=== PATIENT | female | born 1965 | race Hispanic/Latino ===

== ENCOUNTER 2017-01-02 09:05 | Day surgery (SDC) | payer BC, OTHER ==
[2017-01-02 09:21] VITALS: BMI 26.9
[2017-01-02] MEDS ORDERED: Lidocaine 1% Inj (20ml) ONE (10:13)
[2017-01-02] MEDS ORDERED: Vasopressin 20 Units/ml Inj ONE (10:13)
[2017-01-02] MEDS ORDERED: HYDROmorphone 0.5 mg/0.5 ml ISec IVP PRN (10:26)
[2017-01-02] MEDS ORDERED: Lactated Ringer's 1,000 ML IV ONE (10:32)
[2017-01-02] MEDS ORDERED: Midazolam 2 MG/2 ML VIAL ONE (10:37)
[2017-01-02] MEDS ORDERED: Propofol 10 mg/ml Inj (20 ML) ONE (10:38)
[2017-01-02] MEDS ORDERED: ceFAZolin IV 1 gm in Dextrose 1 GM/50 ML BAG IVPB ONE (10:46)
--- NOTE | 2017-01-02 11:23 | PCM.SURG1 ---
Surgeon's Initial Post Op Note - Surgeon's Notes Surgeon: dr aleman Shredder/Granulator Operator: NONE Type of Anesthesia: General LMA Anesthesia Administered By: DR BIRMINGHAM Pre-Operative Diagnosis: PRIYANKA 111, END THICKENING Operative Findings: SEE THE OP REOPRT Post-Operative Diagnosis: SAME Operation Performed: COLD KNIFE CONE AND D&C Specimen/Specimens Removed: CERVICAL BIOPSY. ECC. EMC Estimated Blood Loss: EBL {In ML}: 150 Blood Products Given: N/A Drains Used: No Drains Post-Op Condition: Good Date of Surgery/Procedure: 01/02/17 Time of Surgery/Procedure: 11:30
[2017-01-02 13:46] VITALS: TEMP 97.8
[2017-01-02 15:15] VITALS: BP 100/67; PULSE 76; RESP 18; O2SAT 98
--- NOTE | 2017-01-06 01:42 | OP ---
PROCEDURE DATE: 01/02/2017 SURGEON: Rolando Campbell MD [employer] SURGEON: None ANESTHESIA: General with LMA. ANESTHESIOLOGIST: Dr. Waters. PREOPERATIVE DIAGNOSES: The patient is 52-year-old with PRIYANKA III on endometrial ECC, abnormal cervical cytology. PRIYANKA III and endometrial thickening. POSTOPERATIVE DIAGNOSES: The patient is 52-year-old PRIYANKA III on endometrial ECC, abnormal cervical cytology. PRIYANKA III and endometrial thickening. OPERATION PERFORMED: Cold knife cone biopsy and D and C. SPECIMEN: Cervical biopsy, ECC and EMC. COMPLICATIONS: None. ESTIMATED BLOOD LOSS: 150 mL PROCEDURE: After informed consent obtained, the patient was brought to the operating room, placed on the table where general anesthesia was given. When the anesthesia was found to be sufficient, the patient was prepped and draped in the usual sterile fashion. After that, Betadine was used to clean the cervix. After that, the anterior lip of the cervix was grasped with tenaculum after that visualized with speculum. A 10 mL of Pitocin and Lidocaine was given in the cervix. After that, as PRIYANKA III was seen on the ECC the decision was to do cone biopsy. After that, a stitch was placed at 3 o'clock and 9 o'clock. After that, the anterior lip of the cervix was held up with Allis and blade #11 was used to do the cold knife cone it was then used from one side and the cone was taken. The cervical cone biopsy was done and no cautery was used. The cone was taken out and it was sent to the pathology. After that the edges were bleeding, so it was cauterized with the Bovie and then a lot of Monsel was applied it was bleeding so extra Monsel was applied, lot of pressure was applied, then we waited for a little bit, it was observed. No bleeding. The patient tolerated the procedure well. Lap, sponge and instruments were correct x2. The patient was sent to recovery room. The patient was sent home on antibiotics and pain medication. To follow up with Dr. Campbell in 2 weeks. Rolando Campbell MD [facility] # [id number]
== END 2017-01-02 15:00 | disposition home or self-care (01) ==
LOC: C.SDS 09:05
PROVIDERS: ATTEND Obstetrics & Gynecology
DX: R87.613 High grade squamous intraepithelial lesion on cytologic smear of cervix (HGSIL) (principal)
CPT/HCPCS: 57520; 88305; 88307; J0690; J1170; J1885; J2250; J2405; J2704; J2765; J3010; J7120

== ENCOUNTER 2017-01-05 09:20 | Observation (INO) | payer BC ==
[2017-01-05 09:21] VITALS: BMI 26.9
[2017-01-05 09:54] LABS: BASO # 0.1 K/uL (0.0-0.2); BASO % 1.4 % (0.0-2.0); EOS # 0.3 K/uL (0.0-0.7); EOS % 3.5 % (0.0-4.0); HEMATOCRIT 38.6 % (34.0-47.0); LYMPH # 2.4 K/uL (1.0-4.3); LYMPH % 31.5 % (20.0-40.0); MEAN CELL VOLUME 88.2 fL (81.0-99.0); MEAN CORPUSCULAR HEMOGLOBIN 29.2 pg (27.0-31.0); MEAN CORPUSCULAR HGB CONC 33.1 g/dL (33.0-37.0); MEAN PLATELET VOLUME 8.4 fL (7.2-11.7); MONO # 0.2 K/uL (0.0-0.8); MONO % 3.2 % (0.0-10.0); NRBC % 0.1 % (0.0-2.0); WHITE BLOOD COUNT 7.6 K/uL (4.8-10.8)
--- NOTE | 2017-01-05 09:55 | C.PDOC ---
History Of Present Illness 52 y/o F c PMHx hypercholesterolemia, s/p cone biopsy and D&C [address] Campbell p/w vaginal bleeding and syncope 2 hours ago. Patient states that this morning, she had 2 episodes of a large amount of blood from the vagina. After the 2nd episode, she got up from bed to go to the bathroom and lost consciousness. She awoke on the floor and called for an ambulance to come to the ER. She denies any pain or trauma from her fall. She denies constant vaginal bleeding. Denies chest pain, dyspnea, palpitations. Time Seen by Provider: 01/05/17 09:28 Chief Complaint (Nursing): Female Genitourinary Past Medical History Vital Signs: Last Vital Signs Temp 98.1 F 01/05/17 09:30 Pulse 68 01/05/17 09:30 Resp 20 01/05/17 09:30 BP 86/53 L 01/05/17 09:30 Pulse Ox 98 01/05/17 10:07 - Medical History PMH: Depression, Gall Bladder Disease, Hypercholesterolemia Denies: Chronic Kidney Disease Surgical History: Cholecystectomy Family History: States: No Known Family Hx - Social History Hx Alcohol Use: No Hx Substance Use: No Review Of Systems Except As Marked, All Systems Reviewed And Found Negative. Constitutional: Negative for: Fever Cardiovascular: Negative for: Chest Pain Physical Exam - Physical Exam Additional Physical Exam Comments: Constitutional: No acute distress. Head: Normocephalic. Atraumatic. Eyes: PERRL. ENT: Moist mucous membranes. Neck: Supple. Cardiovascular: Regular rate. Radial pulses 2+ bilaterally. Chest: No tenderness. Respiratory: Clear to auscultation bilaterally. GI: Soft. Nontender. Nondistended. Pelvic: No cydney hemorrhage from vagina. Back: No CVA tenderness. Musculoskeletal: No tenderness or swelling of extremities. Skin: No rash. Diaphoretic. Neurologic: Alert, no focal deficit. ED Course And Treatment - Laboratory Results Result Diagrams: 01/05/17 09:49 01/05/17 09:49 O2 Sat by Pulse Oximetry: 98 Medical Decision Making Medical Decision Making: Discussed case with Dr. Campbell who will come see patient in ED and perform pelvic exam, requests Molina at bedside. EKG: Normal sinus rhythm at [address]/T wave changes. Dr. Campbell accepts patient to her service for observation. Disposition Discussed With : Rolando Campbell Doctor Will See Patient In The: ED - Disposition Disposition: HOSPITALIZED Disposition Time: 10:32 Condition: FAIR Forms: [facility] (Yoruba) - Clinical Impression Clinical Impression: Syncope, Vaginal bleeding - Scribe Statement The provider has reviewed the documentation as recorded by the Scribe Carrlol Dupree All medical record entries made by the Marloibe were at my direction and personally dictated by me. I have reviewed the chart and agree that the record accurately reflects my personal performance of the history, physical exam, medical decision making, and the department course for this patient. I have also personally directed, reviewed, and agree with the discharge instructions and disposition.
[2017-01-05 10:02] LABS: CHLORIDE 103 mmol/L (98-107); POTASSIUM 4.2 mmol/L (3.6-5.2); SODIUM 141 mmol/L (132-148)
[2017-01-05 10:04] LABS: BILIRUBIN,TOTAL 0.5 mg/dL (0.2-1.3); GFR AFRICAN-AMERICAN > 60
[2017-01-05 10:05] LABS: ALB/GLOB RATIO 1.2 (1.0-2.1); ALKALINE PHOSPHATASE 42 U/L (38-126); ALT/SGPT 56 U/L (9-52); AST/SGOT 25 U/L (14-36); BLOOD UREA NITROGEN 17 mg/dL (7-17); CALCIUM 8.8 mg/dl (8.6-10.4); CARBON DIOXIDE 25 mmol/L (22-30); GLUCOSE,RANDOM 120 mg/dL (65-105); TOTAL PROTEIN 6.6 g/dL (6.3-8.3)
[2017-01-05] MEDS ORDERED: FERRIC SUBSULFATE TOP STA (10:05)
[2017-01-05] MEDS ORDERED: Sodium Chloride 0.9% 1,000 ML IV STA (10:33)
[2017-01-05] MEDS ORDERED: Lactated Ringer's 1,000 ML IV SCH (11:30)
--- NOTE | 2017-01-05 12:51 | CP.PCM.HP ---
History of Present Illness - History of Present Illness History of Present Illness: Ms. Coombs is a 52 y.o. female with PMH HLD and depression who presents to the ER BIBA with heavy vaginal bleeding, and an episode of loss of consciousness this morning. She is s/p cone biopsy and D&C on 01/02/17 due to abnormal PAP smear 4 weeks earlier, and abnormal colposcopy 2 weeks ago. Patient states that her post-op condition has been well with only some spotting on Sunday- (1 pad/day), and mild pain controlled by Motrin and was also on abx. Boyfriend seen and room and was asked to step outside for the H&P. Patient states that she had prior syncopal episode in teen years. Pt states that this morning, she awoke at 0600 and discovered vaginal bleeding on her bedsheets and reports clots when she used the bathroom but felt fine afterward and denied active bleeding. At 0800, pt experienced another episode of heavy bleeding and as she was making her way to the bathroom, she collapsed on the floor and lost consciousness. She reports feeling dizzy before falling to the floor, but denies any other prodromal symptoms. Pt is unsure of how long her LOC episode lasted, but estimates that it might have been a few minutes, and she called boyfriend and EMS. She was able to ambulate and open the door for EMT afterwards, and denies any tongue biting, or foaming but states that she was actively vaginally bleeding at this point. Patient denies of any fever, chills, SOB, abdominal pain, dysuria, nausea, vomiting, diarrhea, or constipation. [employer] Hx - . First trimester in patient's 20's. Patient states that currently she has irregular cycles at 1-2 months, which last for 5 days. Previously, she states she had regular monthly cycles. 14 x 1-2 months x 5 days. Last PAP smear - 4 weeks ago, abnormal; referred for colposcopy Patient is sexually active with multiple partners and uses condoms regularly. Patient and sexual partner treated for chlamydia 1 month ago (current boyfriend doesn't know about this). Denies any other history of STIs. She reports of being on OCPs in her 20's - 40's. Past Medical Hx - HLD, depression Past Surgical Hx - cholecystectomy at age 28 Medications - simvastatin, Lexapro Allergies - pollen; NKDA Social Hx - denies smoking cigarettes, illicit drug use; drinks ETOH occasionally; lives alone with a cat Family Hx - paternal grandmother with thyroid cancer PMD: currently doesn't see one regularly ObGyn: Dr. Campbell Present on Admission - Present on Admission Any Indicators Present on Admission: No History of DVT/PE: No History of Uncontrolled Diabetes: No Review of Systems - Constitutional Constitutional: As Per HPI. absent: Chills, Fever - EENT Eyes: As Per HPI. absent: Loss of Peripheral Vision, Pain Ears: Dizziness (earlier but no longer) - Cardiovascular Cardiovascular: Lightheadedness. absent: Chest Pain, Dyspnea - Respiratory Respiratory: absent: Cough, Dyspnea on Exertion - Gastrointestinal Gastrointestinal: absent: Abdominal Pain, Constipation, Diarrhea, Nausea, Vomiting - Genitourinary Genitourinary: absent: Difficulty Urinating, Dysuria, Hematuria - Reproductive: Female Reproductive:Female: Currently Menstual (irregular), Cycle >35 Days, Cycle Variable, Menses 1-7 Days, Normal Menses, Abnormal Vaginal Bleeding. absent: Spotting Between Cycles, Post Menopausal, Dysmenorrhea, Genital Lesions, Vaginal Discharge - Neurological Neurological: Dizziness. absent: Confusion, Focal Weakness, Headaches, Loss of Vision, Weakness Past Patient History - Past Medical History & Family History Past Medical History?: Yes - Past Social History Smoking Status: Never Smoked Alcohol: Social Drugs: Denies Home Situation {Lives}: Alone - CARDIAC Hx Hypercholesterolemia: Yes Hx Hypertension: No - PULMONARY Hx Respiratory Disorders: No - NEUROLOGICAL Hx Neurological Disorder: No - HEENT Hx HEENT Problems: No - RENAL Hx Chronic Kidney Disease: No - ENDOCRINE/METABOLIC Hx Endocrine Disorders: No - HEMATOLOGICAL/ONCOLOGICAL Hx Blood Disorders: No - INTEGUMENTARY Hx Dermatological Problems: No - MUSCULOSKELETAL/RHEUMATOLOGICAL Hx Musculoskeletal Disorders: No - GASTROINTESTINAL Hx Gall Bladder Disease: Yes - GENITOURINARY/GYNECOLOGICAL Hx Genitourinary Disorders: Yes Other/Comment: Cervical Dysplasia. Denies abnormal vaginal bleeding, drainage. Denies pelvic pain. - PSYCHIATRIC Hx Depression: Yes Hx Substance Use: No - SURGICAL HISTORY Hx Surgeries: Yes Hx Cholecystectomy: Yes - ANESTHESIA Hx Anesthesia: Yes Hx Anesthesia Reactions: No Hx Malignant Hyperthermia: No Meds Allergies/Adverse Reactions: Allergies Allergy/AdvReac Type Severity Reaction Status Date / Time No Known Allergies Allergy Verified 01/02/17 09:35 Physical Exam - Constitutional Appears: Well, No Acute Distress - Head Exam Head Exam: ATRAUMATIC, NORMAL INSPECTION, NORMOCEPHALIC - Eye Exam Eye Exam: EOMI, Normal appearance, PERRL - ENT Exam ENT Exam: Mucous Membranes Moist, Normal Exam - Respiratory Exam Respiratory Exam: Clear to Auscultation Bilateral, NORMAL BREATHING PATTERN. absent: Accessory Muscle Use, Respiratory Distress - Cardiovascular Exam Cardiovascular Exam: RRR, +S1, +S2 - GI/Abdominal Exam GI & Abdominal Exam: Normal Bowel Sounds, Soft. absent: Distended, Tenderness - Exam Speculum exam: Vaginal Bleeding (moderate clots with NO active bleeding). absent: Cervical Discharge, Vaginal Discharge - Extremities Exam Extremities exam: Negative for: calf tenderness, pedal edema - Psychiatric Exam Psychiatric exam: Normal Mood Results - Vital Signs Recent Vital Signs: Last Vital Signs Temp 98.1 F 01/05/17 09:30 Pulse 64 01/05/17 10:46 Resp 18 01/05/17 10:46 BP 105/69 01/05/17 10:46 Pulse Ox 99 01/05/17 10:46 - Labs Result Diagrams: 01/05/17 09:49 01/05/17 09:49 Assessment & Plan - Assessment and Plan (Free Text) Assessment: 52F with PMH HLD and depression p/w abnormal vaginal bleeding and dizziness/loss of consciousness this AM s/p cone biopsy and D&C on 01/02/17 Plan: 1. Abnormal vaginal bleeding, currently no active bleeding - Pt on Obs 24hrs - Monsel's given in ED - H/H stable - vitals stable - LR @125 - Motrin for pain mgmt - f/u CBC AM Regular Diet Dispo: likely d/c tomorrow Patient was seen, examined and discussed with attending, Dr. Adrian Harley PGY1 - Date & Time Date: 01/05/17 Time: 11:30
[2017-01-05 16:16] VITALS: RESP 20
--- NOTE | 2017-01-05 19:50 | CARD ---
APPROVED REPORT EKG Measurement Heart [id number] <Conclusion> Normal sinus rhythm Normal ECG
[2017-01-06 04:45] LABS: HEMATOCRIT 33.6 % (34.0-47.0); MEAN CELL VOLUME 87.5 fL (81.0-99.0); MEAN CORPUSCULAR HEMOGLOBIN 29.5 pg (27.0-31.0); MEAN CORPUSCULAR HGB CONC 33.7 g/dL (33.0-37.0); MEAN PLATELET VOLUME 8.3 fL (7.2-11.7); RED CELL DISTRIBUTION WIDTH 13.2 % (11.5-14.5); WHITE BLOOD COUNT 9.9 K/uL (4.8-10.8)
--- NOTE | 2017-01-06 07:44 | CP.PCM.PN ---
Subjective - Date & Time of Evaluation Date of Evaluation: 01/06/17 Time of Evaluation: 08:00 - Subjective Subjective: pt was seen at bed side. no more vb. feels ok. pt was c/o leg pain .tolerating deit.feeling ok. h/h stable Objective - Vital Signs/Intake and Output Vital Signs (last 24 hours): Temp Pulse Resp BP Pulse Ox 98.1 F 79 20 104/71 99 01/05/17 23:00 01/05/17 23:00 01/05/17 23:00 01/05/17 23:00 01/05/17 23:00 - Medications Medications: Current Medications Ferrous Sulfate (Feosol) 325 mg PO DAILY RAYMUNDO Lactated Ringer's (Lactated Ringer's) 1,000 mls @ 125 mls/hr IV .Q8H RAYMUNDO Last Admin: 01/05/17 19:49 Dose: 125 mls/hr Ibuprofen (Motrin Tab) 600 mg PO PRN PRN PRN Reason: for pain Last Admin: 01/05/17 19:48 Dose: 600 mg - Labs Labs: 01/06/17 04:42 PT 11.6 SECONDS (9.7-12.2) 01/05/17 09:49 INR 1.0 01/05/17 09:49 APTT 19 SECONDS (21-34) L 01/05/17 09:49 Assessment and Plan - Assessment and Plan (Free Text) Assessment: 52 yr s/p cold knife biopsy taylor patton stabe Plan: dc home bed rest for few days no sex motrin prn f/u in office in 1week
[2017-01-06 10:31] VITALS: BP 98/64; PULSE 75; TEMP 98.6; O2SAT 98
== END 2017-01-06 10:05 | disposition home or self-care (01) ==
LOC: C.ER 09:20 → C.9E 10:26 → C.4M 10:35
PROVIDERS: ADMIT Obstetrics & Gynecology; ATTEND Obstetrics & Gynecology
DX: N93.8 Other specified abnormal uterine and vaginal bleeding (principal); E78.5 Hyperlipidemia, unspecified
CPT/HCPCS: 36415; 80053; 82948; 85025; 85027; 85610; 85730; 86850; 86900; 93005; 99285; G0378; J7040; J7120